=== PATIENT | male | born 1960 | race Caucasian/White ===

== ENCOUNTER 2025-03-19 08:49 | Outpatient (CLI) | payer MEDICARE, BC, SELFPAY ==
--- NOTE | 2025-03-19 10:44 | P.ANES_ITS ---
Anesthesia Charges Start Date/Time Anesthesia Start Date: 03/19/25 Anesthesia Start Time: 09:59 Stop Date/Time Anesthesia Stop Date: 03/19/25 Anesthesia Stop Time: 10:42 Coding CPT Codes CPT Codes: ANES LWR INTST SCR COLSC - [id number] ([id number]) P3 - PATIENT W/SEVERE SYS DISEASE, QK - TRASH HAULER 2-4 CNCRNT ANES PROC, QX - HARD[employer]OD FLOOR INSTALLATION HELPER SVC W/ MD MED DIRECTION
--- NOTE | 2025-03-19 10:44 | W.ANESCHARGE ---
Anesthesia Charges Start Date/Time Anesthesia Start Date: 03/19/25 Anesthesia Start Time: 09:59 Stop Date/Time Anesthesia Stop Date: 03/19/25 Anesthesia Stop Time: 10:42 Coding CPT Codes CPT Codes: ANES LWR INTST SCR COLSC - [id number] ([id number]) P3 - PATIENT W/SEVERE SYS DISEASE, QK - FLEXIBLE MACHINING SYSTEM MACHINIST 2-4 CNCRNT ANES PROC, QX - BALANCER SVC W/ MD MED DIRECTION
--- NOTE | 2025-03-19 10:50 | P.ANES_ITS ---
Anesthesia Charges Start Date/Time Anesthesia Start Date: 03/19/25 Anesthesia Start Time: 09:59 Stop Date/Time Anesthesia Stop Date: 03/19/25 Anesthesia Stop Time: 10:42 Coding CPT Codes CPT Codes: ANES LWR INTST SCR COLSC - [id number] ([id number]) QK - TOP CASE ASSEMBLER 2-4 CNCRNT ANES PROC, QX - INSURANCE REPRESENTATIVE SVC W/ MED DIRECTION, P3 - PATIENT W/SEVERE SYS DISEASE
--- NOTE | 2025-03-19 10:50 | W.ANESCHARGE ---
Anesthesia Charges Start Date/Time Anesthesia Start Date: 03/19/25 Anesthesia Start Time: 09:59 Stop Date/Time Anesthesia Stop Date: 03/19/25 Anesthesia Stop Time: 10:42 Coding CPT Codes CPT Codes: ANES LWR INTST SCR COLSC - [id number] ([id number]) QK - GROCERY PACKER 2-4 CNCRNT ANES PROC, QX - HOSPICE CHAP[facility]IN SVC W/ MED DIRECTION, P3 - PATIENT W/SEVERE SYS DISEASE
== END 2025-03-19 08:50 | disposition home or self-care (01) ==
PROVIDERS: PCP Family Medicine; Visit Provider Internal Medicine Gastroenterology
DX: Z12.11 Encounter for screening for malignant neoplasm of colon (principal); Z86.0100 Personal history of colon polyps, unspecified; Q43.8 Other specified congenital malformations of intestine
CPT/HCPCS: 00812; 45378; J2704